=== PATIENT | female | born 1980 | race African-American/Black ===

== ENCOUNTER 2017-09-17 13:00 | Emergency (ER) | payer OTHER ==
--- NOTE | 2017-11-20 14:22 | EKG ---
Test Reason : Blood Pressure : / mmHG Vent. Rate : 074 BPM Atrial Rate : 074 BPM P-R Int : 124 ms QRS Dur : 096 ms QT Int : 362 ms P-R-T Axes : 052 033 040 degrees QTc Int : 401 ms Normal sinus rhythm Normal ECG Confirmed by CARLOS SCHWARTZ, NAIN Berry ([id number]), editorial director MARIA T STARKEY ([id number]) on 11/20/2017 2:21:40 PM Referred By: Confirmed By:NAIN GONZALEZ MD
== END 2017-09-17 15:17 | disposition home or self-care (01) ==
LOC: ERS 13:00
DX: I10 Essential (primary) hypertension (principal); F43.0 Acute stress reaction; F41.9 Anxiety disorder, unspecified; F32.9 Major depressive disorder, single episode, unspecified; Z79.899 Other long term (current) drug therapy
CPT/HCPCS: 93005

== ENCOUNTER 2020-11-21 14:05 | Outpatient (CLI) | payer BC | END 2020-11-21 14:06 | disposition home or self-care (01) | LOC: BICULT 14:05 | PROVIDERS: ATTEND Family Medicine | DX: N92.1 Excessive and frequent menstruation with irregular cycle (principal); D25.9 Leiomyoma of uterus, unspecified; N85.2 Hypertrophy of uterus | CPT/HCPCS: 76856 ==

== ENCOUNTER 2024-07-07 10:04 | Outpatient (CLI) | payer BC | END 2024-07-07 10:05 | disposition home or self-care (01) | LOC: BICMAMMO 10:04 | PROVIDERS: ATTEND Obstetrics & Gynecology | DX: Z12.31 Encounter for screening mammogram for malignant neoplasm of breast (principal); Z80.3 Family history of malignant neoplasm of breast | CPT/HCPCS: 77063; 77067 ==